=== PATIENT | male | born 1975 | race Native Hawaiian/Other Pacific Islander ===

== ENCOUNTER 2017-03-26 11:53 | Outpatient (CLI) | payer OTHER | END 2017-03-26 13:00 | disposition home or self-care (01) | LOC: CT 11:53 | DX: H53.2 Diplopia (principal); H50.011 Monocular esotropia, right eye ==

== ENCOUNTER 2018-08-25 10:03 | Emergency (ER) | payer OTHER ==
[~2018-08-25] VITALS: Ht 182.9 cm; Wt 117.9 kg
[2018-08-25 11:55] LABS: PLATELET COUNT 270 K/uL (142-355)
[2018-08-25 12:03] LABS: POTASSIUM 4.2 mmol/L (3.6-5.2)
[2018-08-25 14:10] VITALS: BP 135/81; TEMP 98
== END 2018-08-25 14:10 | disposition home or self-care (01) ==
LOC: ED 10:03
DX: S22.41XA Multiple fractures of ribs, right side, initial encounter for closed fracture (principal); V03.90XA Pedestrian on foot injured in collision with car, pick-up truck or van, unspecified whether traffic or nontraffic accident, initial encounter; Y92.89 Other specified places as the place of occurrence of the external cause
CPT/HCPCS: 80053; 81000; 85027; 99283

== ENCOUNTER 2022-12-06 11:04 | Emergency (ER) | payer OTHER ==
[~2022-12-06] VITALS: Ht 182.9 cm; Wt 104.3 kg
[2022-12-06 11:09] VITALS: TEMP 98.6
[2022-12-06 11:54] LABS: PLATELET COUNT 292 K/uL (142-355)
[2022-12-06 12:02] LABS: POTASSIUM 3.4 mmol/L (3.6-5.2)
[2022-12-06 13:15] VITALS: BP 148/92
== END 2022-12-06 13:15 | disposition home or self-care (01) ==
LOC: ED 11:04
PROVIDERS: Emergency Medicine
DX: M19.09 Primary osteoarthritis, other specified site (principal); M13.88 Other specified arthritis, other site; M17.11 Unilateral primary osteoarthritis, right knee; M13.861 Other specified arthritis, right knee; I10 Essential (primary) hypertension
CPT/HCPCS: 80053; 80320; 84484; 85027; 93005; 96374; 99284; J0360